=== PATIENT | female | born 1975 | race Caucasian/White ===

== ENCOUNTER 2016-06-21 05:13 | Emergency (ER) | payer OTHER ==
--- NOTE | 2016-06-21 08:01 | DIAGNOSTIC IMAGING REPORT ---
PROCEDURE: XR CHEST 1 VIEW INDICATION: CHEST PAIN TECHNIQUE: Portable AP view 0720 hours. COMPARISON: None. FINDINGS: Allowing for overlying wires and electrodes, lungs are clear. Heart and mediastinum are normal. Thorax is normal. IMPRESSION: 1. Negative chest.
--- NOTE | 2016-06-21 09:01 | ED NURSING NOTES ---
Clinical Report - Nurses [facility] [place] [place] [address] 06/21/2016 5:15 Patient: AXEL GOMEZ TRIAGE Triage time 05:20 Jun 21 2016. Acuity: LEVEL 3. Chief Complaint: CHEST PAIN. Alert. NANDO COMA SCORE: Spencer Coma Scale: 15- eyes open spontaneously (4); best verbal response- oriented x 4 (5); best motor response- obeys commands (6). --05:32 Carlos Velazquez R.N. 05:21 06/21/16. BP: 174/99. HR: 117. RR: 18. O2 saturation: 98%. Temp: 99.6 F (oral). Pain level now: 10. --05:32 Carlos Velazquez R.N. Weight: 90.7 kg stated. Height/Length: 66 inches Per Patient. BMI: 32.3. --05:23 Carlos Velazquez R.N. Medication/allergy information source: the patient. --05:34 Carlos Velazquez R.N. Allergies Latex. --09:18 Renee Rose R.N. History Arrived by private vehicle. Historian: patient. Accompanied by spouse. Primary physician (Bernice). ( Chest pain for the last 2 weeks but worsened starting last night. "Before it felt like pressure, but now it feels like pain."). Onset. (about 6 hours ago). She has had difficulty breathing and nausea. Reports experiencing sweating episodes. 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 (Zantac 150 mg). PAST MEDICAL HX: Immunizations: up-to-date. Last normal menstrual period was 2 weeks ago. Denies current . SURGERY HX: No history of previous surgery. SOCIAL HX: Never smoker. No alcohol use or drug use. No infectious disease exposure. ABUSE ASSESSMENT: No report of abuse. FALL RISK ASSESSMENT: Fall risk assessment completed. No fall risk identified. NUTRITIONAL RISK ASSESSMENT: The nutritional risk assessment revealed no deficiencies. FUNCTIONAL ASSESSMENT: Functional assessment: no impairments noted. LEARNING NEEDS ASSESSMENT: The learning needs assessment revealed no barriers. SKIN INTEGRITY ASSESSMENT: Skin integrity risk assessment completed. No skin integrity risk identified. --05:32 Carlos Velazquez R.N. ADDITIONAL SURGERIES: no known surgeries. Interventions ID and allergy band on patient. To treatment room. --05:32 Carlos Velazquez R.N. PHYSICAL ASSESSMENT Ambulatory to room. GENERAL / NEURO / PSYCH: Alert. Oriented X 4. Appears in pain. HEENT: Mucous membranes are pink. RESPIRATORY: Respirations not labored. CVS: Cardiac rhythm: sinus tachycardia. Pulses within normal limits. Capillary refill less than 2 seconds. GI / : Abdomen soft. EXTREMITIES: No lower extremity edema. SKIN: Skin is warm and dry. Normal skin turgor. Skin is non-tender. --05:32 Carlos Velazquez R.N. NURSING PROGRESS NOTES travel accommodation inspector, pulse oximeter and NIBP monitor placed on patient; cardiac catheterization technician- Lead II and V1; monitor alarms on. Patient gowned. Reassurance given to the patient. Patient identifiers checked. Call light placed in reach. Side rails up x 1. Bed placed in lowest position. Brakes of bed on. Patient ready for evaluation- chart flagged and ED physician notified. --05:33 Carlos Velazquez R.N. EKG time: (0547 AM). EKG was ordered, performed by a tech and shown to the ED physician. --05:50 Marilee Can 05:41 06/21/2016 Site #1 started via IV in the left antecubital space with an 20g angiocath, with aseptic technique and good blood return; one attempt. Blood drawn: rainbow set. Labeled in the presence of the patient and sent to the lab. Saline lock flushed with 10 mL saline. --05:51 Carlos Velazquez R.N. 05:50 06/21/2016 Viscous Lidocaine 20 mL and Mylanta 30 mL * PO 50mL --06:05 Carlos Velazquez R.N. 06:00 06/21/16. BP: 137/84. HR: 100. RR: 16. O2 saturation: 95%. Pain level now: 10. --06:12 Carlos Velazquez R.N. 06:30 06/21/16. BP: 149/94. HR: 100. RR: 16. O2 saturation: 96% on room air. Temp: 99 F. Pain level now: 7/10. Additional comments: pressure. --06:43 Carlos Velazquez R.N. 06:40 06/21/2016 Zofran (Ondansetron HCl) IVP 4 mg given over 2 minute(s) via site #1. Allergies verified and confirmed 5 rights. IV patency established. IV site checked: no pain, redness, or swelling. IV flushed thoroughly pre- and post-medication administration. IVP given by RN. --06:45 Carlos Velazquez R.N. 07:06 06/21/16. Care transferred and report received (Carlos Parisi). --07:06 Renee Rose R.N. Cardiac rhythm: sinus tachycardia. --07:13 Renee Rose R.N. 07:13 06/21/16. BP: 151/90. HR: 100. RR: 12. O2 saturation: 95%. --07:13 Renee Rose R.N. 07:19 06/21/16. ( CXR in rm). --07:19 Carlos Velazquez R.N. 08:39 06/21/16. BP: 130/79. HR: 93. RR: 13. O2 saturation: 95% on room air. Pain level now 3/10. --08:39 Renee Rose R.N. Cardiac rhythm: normal sinus rhythm. --08:39 Renee Rose R.N. 09:05 06/21/2016 Aspirin PO Tablets 325 mg given. Allergies verified and confirmed 5 rights. --09:15 Renee Rose R.N. DISPOSITION / DISCHARGE 09:15 06/21/16. Departure time: 914. Cardiac rhythm: normal sinus rhythm. Condition at departure: improved and stable. No learning barriers present. Discharge instructions provided and reviewed with the patient. Reviewed medication(s) side effects, precautions, dosing and course information. Patient verbalized understanding. Written instructions provided in Croatian. The patient was discharged by the physician. She was discharged home and accompanied by spouse. She left the Emergency Department ambulatory and via private vehicle. Patient driving. --09:16 Renee Rose R.N. 09:15 06/21/16. BP: 125/79. HR: 95. RR: 13. O2 saturation: 96%. Temp: 98.0 F. Pain level now 07/20. --09:16 Renee Rose R.N. Locked/Released at 06/21/2016 9:19 by Renee Rose R.N.
--- NOTE | 2016-06-21 09:01 | ED ORDER SUMMARY ---
..... Patient: AXEL GOMEZ OrderSheet [facility] VisitID: [id number] [place] [address] 40y, F Registration Date/Time: 06/21/2016 ORDER SHEET Weight: 90.7 kg (stated) Allergies: Latex GENERAL ORDERS: Chest 2V Urgent (05:17 06/21/2016 Spring Rojas) (Ack 5:23 CHagerty ER Other Sports Official) (7:36 Hakan R.N.) Credentialing Assistant (Continuous) (CP) (05:17 06/21/2016 Spring Rojas) (Ack 5:23 Betsy [facility] Other Sports Official) (5:37 Linda R.N.) CBC w Diff Urgent (05:06/21/2016 Spring Rojas) (Ack 5:23 Betsy [facility] Other Sports Official) (5:51 Linda R.N.) BMP Urgent (05:17 06/21/2016 Spring Rojas) (Ack 5:23 Betsy [facility] Other Sports Official) (5:51 Linda R.N.) Urine Urgent (05:17 06/21/2016 Spring Rojas) (Ack 5:23 Betsy ER Other Sports Official) (5:51 Linda R.N.) (Cancelled: Other6:51 Linda R.N.) Troponin-I Urgent (05:17 06/21/2016 Spring Rojas) (Ack 5:23 Betsy ER Other Sports Official) (5:51 Linda R.N.) Pulse oximeter (05:17 06/21/2016 Spring Rojas) (Ack 5:23 Richarderty ER Other Sports Official) (5:37 Linda R.N.) UA-Culture if indicated Urgent (05:38 06/21/2016 Linda RYonNYon verbal order read back to Spring Rojas) (Ack 5:45 CHagervin ER Other Sports Official) (Cancelled: Unable to Collect9:18 Hakan R.N.) Serum Qualitative Urgent (06:52 06/21/2016 Linda RYonNYon verbal order read back to Spring Rojas) (7:04 CHagerty ER Other Sports Official) Troponin-I (draw 2 hours after first one was drawn) Urgent (06:53 06/21/2016 Spring Rojas) (Ack 7:04 Betsy ER Other Sports Official) (8:16 OHernandez) Chest 1V Urgent (07:10 06/21/2016 Betsy ER Other Sports Official verbal order read back to Spring Rojas) (Ack 7:11 Betsy ER Other Sports Official) (7:36 Hakan R.N.) MEDICATION ORDERS: GI Cocktail WHITE PO 30 mL (NOW) (05:52 06/21/2016 Spring Rojas) (6:05 Linda R.N.) Aspirin PO 325 mg (Do not crush or chew, NOW) (08:56 06/21/2016 Spring Rojas) (9:15 Hakan R.N.) IV FLUIDS: IV Saline Lock (05:17 06/21/2016 Spring Rojas) (5:51 Linda R.N.) Zofran IV 4 mg (NOW) (06:44 06/21/2016 Linda R.NYon verbal order read back to Spring Rojas) (6:45 Linda R.N.) ORDER SHEET NOTES: [Electronically signed by Philipp Cabello Dr. (09:11 06/21/2016)] [Electronically signed by Renee Rose R.N. (09:19 06/21/2016)] [Electronically locked/signed by Renee Rose R.N. (09:19 06/21/2016)]
--- NOTE | 2016-06-21 09:01 | ED CLINICAL REPORT ---
Clinical Report - Physicians/Mid Levels [facility] [address] [place] [address] 06/21/2016 5:15 Patient: AXEL GOMEZ Time Seen: 0515. Arrived- By private vehicle. Historian- patient. HISTORY OF PRESENT ILLNESS Chief Complaint: CHEST PAIN. No radiation. This started The past few weeks and is still present and worsening. It was abrupt in onset and has been waxing/waning but is not gone now. Onset during rest. At its maximum, severity described as severe. When seen in the E.D., severity described as severe. Modifying factors- (nonexertional. Patient does not recall what makes it better or what makes it worse). No nausea, vomiting, difficulty breathing or diaphoresis. (abrupt worsening approximately 3 hours ago). No additional chest pain. Similar symptoms previously: None. Recent medical care: The patient was seen recently in a clinic (patient reports getting anxiety medication from clinic which has not helped). REVIEW OF SYSTEMS The patient has had fever and chills. All systems otherwise negative, except as recorded above. PAST HISTORY See nurses notes. SOCIAL HISTORY Never smoker. No alcohol use or drug use. No recent travel. Is a local resident. FAMILY HISTORY Negative. No history of aortic aneurysm or dissection. no history of earlymyocardial infarction. ADDITIONAL NOTES The nursing notes have been reviewed. PHYSICAL EXAM Vital Signs: 06/21/2016 05:21 BP: 174/99. HR: 117. RR: 18. O2 saturation: 98%. Temp: 99.6 F. Pain level now: 5/10. Blood pressure normal. Oxygen saturation normal. Appearance: Alert. Oriented X3. No acute distress. Eyes: Pupils equal, round and reactive to light. Eyes normal inspection. ENT: Ears normal. Nose normal. Pharynx normal. Neck: Normal inspection. CVS: Heart rate / rhythm abnormal. Tachycardia. Heart sounds normal. Pulses normal. Rhythm normal. Respiratory: No respiratory distress. Breath sounds normal. No rales, rhonchi or wheezes. (Left upper anterior reproducible chest pain. . No signs of trauma. No overlying skin changes. No rashes.). Abdomen: Soft and nontender. Bowel sounds normal. No organomegaly. No mass. Femoral pulses equal. Back: Normal external inspection. Skin: Skin warm and dry. Normal skin color. No rash. Normal skin turgor. Extremities: Extremities exhibit normal ROM. No lower extremity edema. Neuro: Oriented X 3. No motor deficit. No sensory deficit. LABS, X-RAYS, AND EKG EKG: No acute ischemia. Regular narrow-complex tachycardia (120). Sinus tachycardia. Normal P waves. Normal NATALIE. Normal QRS complex. Normal axis. Normal ST and T waves, QT and QTc. The study has been interpreted contemporaneously by me. The study has been independently viewed by me. The EKG appears to be a good tracing. Chest X-ray: No acute disease. Normal lung markings present. No infiltrate. Views: PA. The X-rays were independently viewed by me and interpreted contemporaneously by me. Laboratory Tests: Serum Qualitative: ([place]: 06/21/2016 06:52) ( [facility] [place] 06:55) Final results Test Result Flag Units (Reference) , SERUM NEGATIVE CBC w Diff: ([place]: 06/21/2016 05:40) ( [facility] [place] 05:56[place] Final results Test Result Flag Units (Reference) WHITE BLOOD COUNT 10.3 K/uL (4.5-11.5) RED BLOOD COUNT 5.51 H M/uL (4.00-5.20) HEMOGLOBIN 15.6 gm/dL (12.0-16.0) HEMATOCRIT 48.1 H % (36.0-46.0) MEAN CELL VOLUME 87 fL (80-100) MEAN CORPUSCULAR HGB 28 pg (26-34) MEAN CORPUSCULAR HGB CONC 33 g/dL (31-37) RED CELL DISTRIBUTION WIDTH 13.1 % (11.6-14.8) PLATELET COUNT 368 K/uL (150-400) NEUTROPHIL % 79.1 H % (50-75) LYMPH % 16.1 L % (25-40) MONO % 2.5 L % (3-14) EOSINOPHIL % 1.9 % (0-4) BASOPHIL % 0.4 % (0-2) Troponin-I: ([place]RAEL: 06/21/2016 06:53) ( [facility] 06/21/2016 08:37) Final results Test Result Flag Units (Reference) TROPONIN I <0.05 ng/mL (0.00-1.5) TROPONIN REFERENCE RANGE:<0.1 NEGATIVE0.1-1.5 INDETERMINANT>1.5 POSITIVE BMP: ([place]: 06/21/2016 05:40) ( MsgRcvd 06/21/2016 06:14) Final results Test Result Flag Units (Reference) GLUCOSE 173 H mg/dL (70-110) BUN 13 mg/dL (7-18) CREATININE 0.8 mg/dL (0.6-1.3) Estimated GFR >60 mL/min Estimated GFR- >60 mL/min Note: Persistent reduction over 3 months in eGFR<60 mL/min/1.73 m2 defines CKD. Patients with eGFR values>=60 mL/min/1.73 m2 may also have CKD if evidence ofpersistent proteinuria. Additional information may be foundat www.kidney.org. SODIUM 140 mmol/L (136-145) POTASSIUM 3.5 mmol/L (3.5-5.1) CHLORIDE 103 mmol/L (98-107) CARBON DIOXIDE 28 mmol/L (21-32) CALCIUM 8.8 mg/dL (8.5-10.1) TROPONIN I <0.05 L ng/mL (0.00-1.5) TROPONIN REFERENCE RANGE:<0.1 NEGATIVE0.1-1.5 INDETERMINANT>1.5 POSITIVE . PROGRESS AND PROCEDURES Course of Care: the patient is a pleasant 40-year-old female presenting for chest pain. The patient has somewhat atypical symptoms on examination. Patient also has reproducible chest pain on the left side. Patient was prescribed try to fight with pulmonary embolism with the well's criteria. Patient is at low risk for pulmonary embolism. Do not workup is warranted at this time given the patient's low risk. Patient is agreeable to treatment plan for acute myocardial infarction evaluation. Chest x-ray and EKG as well as laboratory studies have been ordered. Because of the patient's time course, feel that troponin 2 will be needed. Do not fill patient has dissecting aortic aneurysm based on examination and history. First troponin was noted to be negative. Patient with improvement with her symptoms after the GI cocktail was provided. Patient is still currently awaiting the second troponin results. Chest x-ray does not show any acute abnormalities. Breast the patient's laboratory studies are also unremarkable. Workup shows patient to have a negative troponin 2. patient is low risk patient foracute cardiac event. The patient is a good outpatient candidate.The patient needs to be admitted at this time. Did not feel further emergency department evaluationis required At this time. Patient is resting in bed and in no acute distress. The heart ratehadimproved spontaneously without further intervention. Patient is currently resting in bed and in no acute distress. I discussed with patient in regards to further management. Patient will need cardiology follow-up. Discussed the patient workup, diagnosis, home care, follow-up, and return precautions. All questions answered. The patient expressed understanding of these instructions and is agreeable to them. Disposition: Discharged. Condition: good. CLINICAL IMPRESSION 06/21/2016 08:39 BP: 130/79. HR: 93. RR: 13. O2 saturation: 95%. Blood pressure normal. Oxygen saturation normal. Atypical chest pain .12 lead EKG performed. (acute left sided). INSTRUCTIONS Warnings: GENERAL WARNINGS: Return or contact your physician immediately if your condition worsens or changes unexpectedly, if not improving as expected, or if other problems arise. SPECIFICALLY, return if you develop chest, neck, jaw, shoulder, arm, or back pain, difficulty breathing, a fluttering sensation in your chest, lightheadedness, fainting, excessive fatigue, or sudden sweating. Prescription Medications: Pepcid 20 mg: take 1 orally every 12 hours as needed for indigestion, upset stomach or heartburn. Dispense thirty (30). No refills. Substitution is permissible. OTC Medications: Aspirin 81 mg (available over the counter): take 1 orally every 24 hours. Dispense thirty (30). No refills. Follow-up: Return to the emergency department as needed. Follow up with your doctor in three days. Reason for referral: recheck today's concerns. Summary of care provided to patient via paper. Screening today revealed the patient's blood pressure to be in the normal range. The patient should follow up with a primary care provider for blood pressure management. Understanding of the discharge instructions verbalized by patient. Follow-up with: Chava Velasquez MD, Cardiology, , [facility], [address], [facility], [address] Follow up in three days. Reason for referral: recheck today's concerns. Summary of care provided to patient via paper. (Electronically signed by Philipp Cabello Dr. 06/21/2016 9:11)
--- NOTE | 2016-06-21 09:01 | ED NURSING NOTES ---
Clinical Report - Nurses [facility] [place] [address] [address] [place] [address] 06/21/2016 5:15 Patient: AXEL GOMEZ TRIAGE Triage time 05:20 Jun 21 2016. Acuity: LEVEL 3. Chief Complaint: CHEST PAIN. Alert. NANDO COMA SCORE: [place] Coma Scale: 15- eyes open spontaneously (4); best verbal response- oriented x 4 (5); best motor response- obeys commands (6). --05:32 Carlos Velazquez R.N. 05:21 06/21/16. BP: 174/99. HR: 117. RR: 18. O2 saturation: 98%. Temp: 99.6 F (oral). Pain level now: 10. --05:32 Carlos Velazquez R.N. Weight: 90.7 kg stated. Height/Length: 66 inches Per Patient. BMI: 32.3. --05:23 Carlos Velazquez R.N. Medication/allergy information source: the patient. --05:34 Carlos Velazquez R.N. Allergies Latex. --09:18 Renee Rose R.N. History Arrived by private vehicle. Historian: patient. Accompanied by spouse. Primary physician (Bernice). ( Chest pain for the last 2 weeks but worsened starting last night. "Before it felt like pressure, but now it feels like pain."). Onset. (about 6 hours ago). She has had difficulty breathing and nausea. Reports experiencing sweating episodes. 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 (Zantac 150 mg). PAST MEDICAL HX: Immunizations: up-to-date. Last normal menstrual period was 2 weeks ago. Denies current . SURGERY HX: No history of previous surgery. SOCIAL HX: Never smoker. No alcohol use or drug use. No infectious disease exposure. ABUSE ASSESSMENT: No report of abuse. FALL RISK ASSESSMENT: Fall risk assessment completed. No fall risk identified. NUTRITIONAL RISK ASSESSMENT: The nutritional risk assessment revealed no deficiencies. FUNCTIONAL ASSESSMENT: Functional assessment: no impairments noted. LEARNING NEEDS ASSESSMENT: The learning needs assessment revealed no barriers. SKIN INTEGRITY ASSESSMENT: Skin integrity risk assessment completed. No skin integrity risk identified. --05:32 Carlos Velazquez R.N. ADDITIONAL SURGERIES: no known surgeries. Interventions ID and allergy band on patient. To treatment room. --05:32 Carlos Velazquez R.N. PHYSICAL ASSESSMENT Ambulatory to room. GENERAL / NEURO / PSYCH: Alert. Oriented X 4. Appears in pain. HEENT: Mucous membranes are pink. RESPIRATORY: Respirations not labored. CVS: Cardiac rhythm: sinus tachycardia. Pulses within normal limits. Capillary refill less than 2 seconds. GI / : Abdomen soft. EXTREMITIES: No lower extremity edema. SKIN: Skin is warm and dry. Normal skin turgor. Skin is non-tender. --05:32 Carlos Velazquez R.N. NURSING PROGRESS NOTES hospice registered nurse, pulse oximeter and NIBP monitor placed on patient; computer meteorologist- Lead II and V1; monitor alarms on. Patient gowned. Reassurance given to the patient. Patient identifiers checked. Call light placed in reach. Side rails up x 1. Bed placed in lowest position. Brakes of bed on. Patient ready for evaluation- chart flagged and ED physician notified. --05:33 Carlos Velazquez R.N. EKG time: (0547 AM). EKG was ordered, performed by a tech and shown to the ED physician. --05:50 Marilee Can 05:41 06/21/2016 Site #1 started via IV in the left antecubital space with an 20g angiocath, with aseptic technique and good blood return; one attempt. Blood drawn: rainbow set. Labeled in the presence of the patient and sent to the lab. Saline lock flushed with 10 mL saline. --05:51 Carlos Velazquez R.N. 05:50 06/21/2016 Viscous Lidocaine 20 mL and Mylanta 30 mL * PO 50mL --06:05 Carlos Velazquez R.N. 06:00 06/21/16. BP: 137/84. HR: 100. RR: 16. O2 saturation: 95%. Pain level now: 10. --06:12 Carlos Velazquez R.N. 06:30 06/21/16. BP: 149/94. HR: 100. RR: 16. O2 saturation: 96% on room air. Temp: 99 F. Pain level now: 7/10. Additional comments: pressure. --06:43 Carlos Velazquez R.N. 06:40 06/21/2016 Zofran (Ondansetron HCl) IVP 4 mg given over 2 minute(s) via site #1. Allergies verified and confirmed 5 rights. IV patency established. IV site checked: no pain, redness, or swelling. IV flushed thoroughly pre- and post-medication administration. IVP given by RN. --06:45 Carlos Velazquez R.N. 07:06 06/21/16. Care transferred and report received (Carlos Parisi). --07:06 Renee Rose R.N. Cardiac rhythm: sinus tachycardia. --07:13 Renee Rose R.N. 07:13 06/21/16. BP: 151/90. HR: 100. RR: 12. O2 saturation: 95%. --07:13 Renee Rose R.N. 07:19 06/21/16. ( CXR in rm). --07:19 Carlos Velazquez R.N. 08:39 06/21/16. BP: 130/79. HR: 93. RR: 13. O2 saturation: 95% on room air. Pain level now 3/10. --08:39 Renee Rose R.N. Cardiac rhythm: normal sinus rhythm. --08:39 Renee Rose R.N. 09:05 06/21/2016 Aspirin PO Tablets 325 mg given. Allergies verified and confirmed 5 rights. --09:15 Renee Rose R.N. DISPOSITION / DISCHARGE 09:15 06/21/16. Departure time: 914. Cardiac rhythm: normal sinus rhythm. Condition at departure: improved and stable. No learning barriers present. Discharge instructions provided and reviewed with the patient. Reviewed medication(s) side effects, precautions, dosing and course information. Patient verbalized understanding. Written instructions provided in Finnish. The patient was discharged by the physician. She was discharged home and accompanied by spouse. She left the Emergency Department ambulatory and via private vehicle. Patient driving. --09:16 Renee Rose R.N. 09:15 06/21/16. BP: 125/79. HR: 95. RR: 13. O2 saturation: 96%. Temp: 98.0 F. Pain level now 07/20. --09:16 Renee Rose R.N. Locked/Released at 06/21/2016 9:19 by Renee Rose R.N.
--- NOTE | 2016-06-21 09:01 | ED ORDER SUMMARY ---
..... Patient: AXEL GOMEZ OrderSheet [facility] VisitID: [id number] [place] [address] 40y, F Registration Date/Time: 06/21/2016 ORDER SHEET Weight: 90.7 kg (stated) Allergies: Latex GENERAL ORDERS: Chest 2V Urgent (05:17 06/21/2016 Spring Rojas) (Ack 5:23 CHagerty ER Paintless Dent Repair Technician) (7:36 Hakan R.N.) Tank Stave Assembler (Continuous) (CP) (05:17 06/21/2016 Spring Rojas) (Ack 5:23 Betsy [facility] Paintless Dent Repair Technician) (5:37 Linda R.N.) CBC w Diff Urgent (05:06/21/2016 Spring Rojas) (Ack 5:23 Betsy [facility] Paintless Dent Repair Technician) (5:51 Linda R.N.) BMP Urgent (05:17 06/21/2016 Spring Rojas) (Ack 5:23 Betsy ER Paintless Dent Repair Technician) (5:51 Linda R.N.) Urine Urgent (05:17 06/21/2016 Spring Rojas) (Ack 5:23 Betsy ER Paintless Dent Repair Technician) (5:51 Linda R.N.) (Cancelled: Other6:51 Linda R.N.) Troponin-I Urgent (05:17 06/21/2016 Spring Rojas) (Ack 5:23 Betsy ER Paintless Dent Repair Technician) (5:51 Linda R.N.) Pulse oximeter (05:17 06/21/2016 Spring Rojas) (Ack 5:23 Richarderty ER Paintless Dent Repair Technician) (5:37 Linda R.N.) UA-Culture if indicated Urgent (05:38 06/21/2016 Linda RYonNYon verbal order read back to Spring Rojas) (Ack 5:45 CHagervin ER Paintless Dent Repair Technician) (Cancelled: Unable to Collect9:18 Hakan R.N.) Serum Qualitative Urgent (06:52 06/21/2016 Linda RYonNYon verbal order read back to Spring Rojas) (7:04 CHagerty ER Paintless Dent Repair Technician) Troponin-I (draw 2 hours after first one was drawn) Urgent (06:53 06/21/2016 Spring Rojas) (Ack 7:04 Betsy ER Paintless Dent Repair Technician) (8:16 OHernandez) Chest 1V Urgent (07:10 06/21/2016 Betsy ER Paintless Dent Repair Technician verbal order read back to Spring Rojas) (Ack 7:11 Betsy ER Paintless Dent Repair Technician) (7:36 Hakan R.N.) MEDICATION ORDERS: GI Cocktail WHITE PO 30 mL (NOW) (05:52 06/21/2016 Spring Rojas) (6:05 Linda R.N.) Aspirin PO 325 mg (Do not crush or chew, NOW) (08:56 06/21/2016 Spring Rojas) (9:15 Hakan R.N.) IV FLUIDS: IV Saline Lock (05:17 06/21/2016 Spring Rojas) (5:51 Linda R.N.) Zofran IV 4 mg (NOW) (06:44 06/21/2016 Linda R.NYon verbal order read back to Spring Rojas) (6:45 Linda R.N.) ORDER SHEET NOTES: [Electronically signed by Philipp Cabello Dr. (09:11 06/21/2016)] [Electronically signed by Renee Rose R.N. (09:19 06/21/2016)] [Electronically locked/signed by Renee Rose R.N. (09:19 06/21/2016)]
--- NOTE | 2016-06-21 09:19 | ED MED RECONCILIATION SUMMARY ---
Patient: AXEL GOMEZ Medication Reconciliation Report [facility] VisitID: [id number] [place] [address] 40y, F Registration Date/Time: 06/21/2016 Weight: 90.7 kg Height/Length: 66 in. BMI: 32.3 ALLERGIES: Latex The patient's Home Medications are listed below: Not obtained. The source(s) of the original Home Medication information: patient The following Medications were given to the patient in the Emergency Department: Viscous Lidocaine 20 mL and Mylanta 30 mL PO 50mL, administered: 06/21/2016 5:50:00 AM Zofran [IVP] IVP 4 mg, administered: 06/21/2016 6:40:00 AM Aspirin [PO] PO 325 mg, administered: 06/21/2016 9:05:00 AM The following Medications were prescribed to the patient: Pepcid 20 mg: take 1 orally every 12 hours as needed for indigestion, upset stomach or heartburn. Dispense thirty (30). No refills. Substitution is permissible. -- Philipp Cabello Dr. Aspirin 81 mg (available over the counter): take 1 orally every 24 hours. Dispense thirty (30). No refills. -- Philipp Cabello Dr.
--- NOTE | 2016-06-21 09:19 | ED MAR SUMMARY ---
..... Medication Administration Record [facility] [address] [place] [address] Patient: AXEL GOMEZ Visit ID: [id number] 40y, F Weight: 90.7 kg Height/Length: 66 in BMI: 32.3 ALLERGIES: Latex Given 05:50 06/21/2016 Carlos Velazquez RYonN. Medication Administered: Viscous Lidocaine 20 mL and Mylanta 30 mL *, Dose: 50mL * PO. Medication Ordered: GI Cocktail WHITE PO 30 mL (NOW). Given 06:40 06/21/2016 Carlos Velazquez RYonN. Medication Administered: ZOFRAN [IVP] (ONDANSETRON HCL), Dose: 4 mg IVP over 2 minute(s), Site: #1 left AC. Medication Ordered: Zofran IV 4 mg (NOW). Given 09:05 06/21/2016 Renee Rose RYonNYon Medication Administered: ASPIRIN [PO], Dose: 325 mg Tablets PO. Medication Ordered: Aspirin PO 325 mg (Do not crush or chew, NOW).
--- NOTE | 2016-06-21 09:19 | ED MAR SUMMARY ---
..... Medication Administration Record [facility] [address] [place] [address] Patient: AXEL GOMEZ Visit ID: [id number] 40y, F Weight: 90.7 kg Height/Length: 66 in BMI: 32.3 ALLERGIES: Latex Given 05:50 06/21/2016 Carlos Velazquez RYonN. Medication Administered: Viscous Lidocaine 20 mL and Mylanta 30 mL *, Dose: 50mL * PO. Medication Ordered: GI Cocktail WHITE PO 30 mL (NOW). Given 06:40 06/21/2016 Carlos Velazquez RYonN. Medication Administered: ZOFRAN [IVP] (ONDANSETRON HCL), Dose: 4 mg IVP over 2 minute(s), Site: #1 left AC. Medication Ordered: Zofran IV 4 mg (NOW). Given 09:05 06/21/2016 Renee Rose RYonNYon Medication Administered: ASPIRIN [PO], Dose: 325 mg Tablets PO. Medication Ordered: Aspirin PO 325 mg (Do not crush or chew, NOW).
--- NOTE | 2016-06-21 09:19 | ED DISCHARGE INSTRUCTIONS ---
Patient: AXEL GOMEZ General Instructions [facility] VisitID: [id number] [place] [address] 40y, F Registration Date/Time: 06/21/2016 06/21/2016 08:39 BP: 130/79. HR: 93. RR: 13. O2 saturation: 95%. Blood pressure normal. Oxygen saturation normal. Atypical chest pain .12 lead EKG performed. (acute left sided). INSTRUCTIONS Warnings: GENERAL WARNINGS: Return or contact your physician immediately if your condition worsens or changes unexpectedly, if not improving as expected, or if other problems arise. SPECIFICALLY, return if you develop chest, neck, jaw, shoulder, arm, or back pain, difficulty breathing, a fluttering sensation in your chest, lightheadedness, fainting, excessive fatigue, or sudden sweating. Prescription Medications: Pepcid 20 mg: take 1 orally every 12 hours as needed for indigestion, upset stomach or heartburn. Dispense thirty (30). No refills. Substitution is permissible. OTC Medications: Aspirin 81 mg (available over the counter): take 1 orally every 24 hours. Dispense thirty (30). No refills. Follow-up: Return to the emergency department as needed. Follow up with your doctor in three days. Reason for referral: recheck today's concerns. Summary of care provided to patient via paper. Screening today revealed the patient's blood pressure to be in the normal range. The patient should follow up with a primary care provider for blood pressure management. Understanding of the discharge instructions verbalized by patient. Follow-up with: Chava Velasquez MD, Cardiology, , [facility], [address], [facility], [id number] Follow up in three days. Reason for referral: recheck today's concerns. Summary of care provided to patient via paper. ADDITIONAL INFORMATION Chest Pain, Uncertain Cause Chest pain can happen for a number of reasons. Sometimes the cause can not be determined. If yourcondition does not seem serious, and your pain does not appear to be coming from your heart, your doctor may recommend watching it closely. Sometimes the signs of a serious problem take more time to appear. Therefore, watch for the warning signs listed below. Home care After your visit, follow these recommendations: Rest today and avoid strenuous activity. Take any prescribed medicine as directed. Follow-up care Follow up with your doctor or this facility as instructed or if you do not start to feel better within 24 hours. Call 911 Get immediate medical attention if any of the following occur: A change in the type of pain: if it feels different, becomes more severe, lasts longer, or begins to spread into your shoulder, arm, neck, jaw or back Shortness of breath or increased pain with breathing Weakness, dizziness, or fainting Rapid heart beat Get prompt medical attention Call your doctor right away if any of the following occur: Cough with dark colored sputum (phlegm) or blood Fever of 100.4F(38C) or higher, or as directed by your health care provider Swelling, pain or redness in one leg Famotidine Oral tablet What is this medicine? FAMOTIDINE (fa MÓNICA ti louie) is a type of antihistamine that blocks the release of stomach acid. It is used to treat stomach or intestinal ulcers. It can also relieve heartburn from acid reflux. How should I use this medicine? Take this medicine by mouth with a glass of water. Follow the directions on the prescription label. If you only take this medicine once a day, take it at bedtime. Take your doses at regular intervals. Do not take your medicine more often than directed. Talk to your risk prevention engineer regarding the use of this medicine in children. Special care may be needed. What side effects may I notice from receiving this medicine? Side effects that you should report to your doctor or health career development facilitator as soon as possible: agitation, nervousness confusion hallucinations skin rash, itching Side effects that usually do not require medical attention (report to your doctor or health career development facilitator if they continue or are bothersome): constipation diarrhea dizziness headache What may interact with this medicine? delavirdine itraconazole ketoconazole What if I miss a dose? If you miss a dose, take it as soon as you can. If it is almost time for your next dose, take only that dose. Do not take double or extra doses. Where should I keep my medicine? Keep out of the reach of children. Store at room temperature between 15 and 30 degrees C (59 and 86 degrees F). Do not freeze. Throw away any unused medicine after the expiration date. What should I tell my health care provider before I take this medicine? They need to know if you have any of these conditions: kidney or liver disease trouble swallowing an unusual or allergic reaction to famotidine, other medicines, foods, dyes, or preservatives or trying to get breast-feeding What should I watch for while using this medicine? Tell your doctor or health career development facilitator if your condition does not start to get better or if it gets worse. Finish the full course of tablets prescribed, even if you feel better. Do not take with aspirin, ibuprofen or other antiinflammatory medicines. These can make your condition worse. Do not smoke cigarettes or drink alcohol. These cause irritation in your stomach and can increase the time it will take for ulcers to heal. If you get black, tarry stools or vomit up what looks like coffee grounds, call your doctor or health career development facilitator at once. You may have a bleeding ulcer. Aspirin Oral tablet What is this medicine? ASPIRIN ( pir in) is a pain reliever. It is used to treat mild pain and fever. This medicine is also used as directed by a doctor to prevent and to treat heart attacks, to prevent strokes, and to treat arthritis or inflammation. How should I use this medicine? Take this medicine by mouth with a glass of water. Follow the directions on the package or prescription label. You can take this medicine with or without food. If it upsets your stomach, take it with food. Do not take your medicine more often than directed. Talk to your risk prevention engineer regarding the use of this medicine in children. While this drug may be prescribed for children as young as 12 years of age for selected conditions, precautions do apply. Children and teenagers should not use this medicine to treat chicken pox or flu symptoms unless directed by a doctor. Patients over 65 years old may have a stronger reaction and need a smaller dose. What side effects may I notice from receiving this medicine? Side effects that you should report to your doctor or health career development facilitator as soon as possible: allergic reactions like skin rash, itching or hives, swelling of the face, lips, or tongue breathing problems changes in hearing, ringing in the ears confusion general ill feeling or flu-like symptoms pain on swallowing redness, blistering, peeling or loosening of the skin, including inside the mouth or nose signs and symptoms of bleeding such as bloody or black, tarry stools; red or dark-brown urine; spitting up blood or brown material that looks like coffee grounds; red spots on the skin; unusual bruising or bleeding from the eye, gums, or nose trouble passing urine or change in the amount of urine unusually weak or tired yellowing of the eyes or skin Side effects that usually do not require medical attention (report to your doctor or health career development facilitator if they continue or are bothersome): diarrhea or constipation nausea, vomiting stomach gas, heartburn What may interact with this medicine? Do not take this medicine with any of the following medications: cidofovir ketorolac probenecid This medicine may also interact with the following medications: alcohol alendronate bismuth subsalicylate flavocoxid herbal supplements like feverfew, garlic, alma, ginkgo biloba, horse chestnut medicines for diabetes or glaucoma like acetazolamide, methazolamide medicines for gout medicines that treat or prevent blood clots like enoxaparin, heparin, ticlopidine, warfarin other aspirin and aspirin-like medicines NSAIDs, medicines for pain and inflammation, like ibuprofen or naproxen pemetrexed sulfinpyrazone varicella live vaccine What if I miss a dose? If you are taking this medicine on a regular schedule and miss a dose, take it as soon as you can. If it is almost time for your next dose, take only that dose. Do not take double or extra doses. Where should I keep my medicine? Keep out of the reach of children. Store at room temperature between 15 and 30 degrees C (59 and 86 degrees F). Protect from heat and moisture. Do not use this medicine if it has a strong vinegar smell. Throw away any unused medicine after the expiration date. What should I tell my health care provider before I take this medicine? They need to know if you have any of these conditions: anemia asthma bleeding problems child with chickenpox, the flu, or other viral infection diabetes gout if you frequently drink alcohol containing drinks kidney disease liver disease low level of vitamin K lupus smoke tobacco stomach ulcers or other problems an unusual or allergic reaction to aspirin, tartrazine dye, other medicines, dyes, or preservatives or trying to get breast-feeding What should I watch for while using this medicine? If you are treating yourself for pain, tell your doctor or health career development facilitator if the pain lasts more than 10 days, if it gets worse, or if there is a new or different kind of pain. Tell your doctor if you see redness or swelling. Also, check with your doctor if you have a fever that lasts for more than 3 days. Only take this medicine to prevent heart attacks or blood clotting if prescribed by your doctor or health career development facilitator. Do not take aspirin or aspirin-like medicines with this medicine. Too much aspirin can be dangerous. Always read the labels carefully. This medicine can irritate your stomach or cause bleeding problems. Do not smoke cigarettes or drink alcohol while taking this medicine. Do not lie down for 30 minutes after taking this medicine to prevent irritation to your throat. If you are scheduled for any medical or dental procedure, tell your healthcare provider that you are taking this medicine. You may need to stop taking this medicine before the procedure. You have been given the following additional information: Chest Pain, Uncertain Cause Famotidine Oral tablet Aspirin Oral tablet (Electronically signed by Philipp Cabello Dr. 06/21/2016 9:11)
--- NOTE | 2016-06-21 09:19 | ED DISCHARGE INSTRUCTIONS ---
Patient: AXEL GOMEZ General Instructions [facility] VisitID: [id number] [place] [address] 40y, F Registration Date/Time: 06/21/2016 06/21/2016 08:39 BP: 130/79. HR: 93. RR: 13. O2 saturation: 95%. Blood pressure normal. Oxygen saturation normal. Atypical chest pain .12 lead EKG performed. (acute left sided). INSTRUCTIONS Warnings: GENERAL WARNINGS: Return or contact your physician immediately if your condition worsens or changes unexpectedly, if not improving as expected, or if other problems arise. SPECIFICALLY, return if you develop chest, neck, jaw, shoulder, arm, or back pain, difficulty breathing, a fluttering sensation in your chest, lightheadedness, fainting, excessive fatigue, or sudden sweating. Prescription Medications: Pepcid 20 mg: take 1 orally every 12 hours as needed for indigestion, upset stomach or heartburn. Dispense thirty (30). No refills. Substitution is permissible. OTC Medications: Aspirin 81 mg (available over the counter): take 1 orally every 24 hours. Dispense thirty (30). No refills. Follow-up: Return to the emergency department as needed. Follow up with your doctor in three days. Reason for referral: recheck today's concerns. Summary of care provided to patient via paper. Screening today revealed the patient's blood pressure to be in the normal range. The patient should follow up with a primary care provider for blood pressure management. Understanding of the discharge instructions verbalized by patient. Follow-up with: Chava Velasquez MD, Cardiology, , [facility], [address], [facility], [id number] Follow up in three days. Reason for referral: recheck today's concerns. Summary of care provided to patient via paper. ADDITIONAL INFORMATION Chest Pain, Uncertain Cause Chest pain can happen for a number of reasons. Sometimes the cause can not be determined. If yourcondition does not seem serious, and your pain does not appear to be coming from your heart, your doctor may recommend watching it closely. Sometimes the signs of a serious problem take more time to appear. Therefore, watch for the warning signs listed below. Home care After your visit, follow these recommendations: Rest today and avoid strenuous activity. Take any prescribed medicine as directed. Follow-up care Follow up with your doctor or this facility as instructed or if you do not start to feel better within 24 hours. Call 911 Get immediate medical attention if any of the following occur: A change in the type of pain: if it feels different, becomes more severe, lasts longer, or begins to spread into your shoulder, arm, neck, jaw or back Shortness of breath or increased pain with breathing Weakness, dizziness, or fainting Rapid heart beat Get prompt medical attention Call your doctor right away if any of the following occur: Cough with dark colored sputum (phlegm) or blood Fever of 100.4F(38C) or higher, or as directed by your health care provider Swelling, pain or redness in one leg Famotidine Oral tablet What is this medicine? FAMOTIDINE (fa MÓNICA ti louie) is a type of antihistamine that blocks the release of stomach acid. It is used to treat stomach or intestinal ulcers. It can also relieve heartburn from acid reflux. How should I use this medicine? Take this medicine by mouth with a glass of water. Follow the directions on the prescription label. If you only take this medicine once a day, take it at bedtime. Take your doses at regular intervals. Do not take your medicine more often than directed. Talk to your kiln loader regarding the use of this medicine in children. Special care may be needed. What side effects may I notice from receiving this medicine? Side effects that you should report to your doctor or health health care technician as soon as possible: agitation, nervousness confusion hallucinations skin rash, itching Side effects that usually do not require medical attention (report to your doctor or health health care technician if they continue or are bothersome): constipation diarrhea dizziness headache What may interact with this medicine? delavirdine itraconazole ketoconazole What if I miss a dose? If you miss a dose, take it as soon as you can. If it is almost time for your next dose, take only that dose. Do not take double or extra doses. Where should I keep my medicine? Keep out of the reach of children. Store at room temperature between 15 and 30 degrees C (59 and 86 degrees F). Do not freeze. Throw away any unused medicine after the expiration date. What should I tell my health care provider before I take this medicine? They need to know if you have any of these conditions: kidney or liver disease trouble swallowing an unusual or allergic reaction to famotidine, other medicines, foods, dyes, or preservatives or trying to get breast-feeding What should I watch for while using this medicine? Tell your doctor or health health care technician if your condition does not start to get better or if it gets worse. Finish the full course of tablets prescribed, even if you feel better. Do not take with aspirin, ibuprofen or other antiinflammatory medicines. These can make your condition worse. Do not smoke cigarettes or drink alcohol. These cause irritation in your stomach and can increase the time it will take for ulcers to heal. If you get black, tarry stools or vomit up what looks like coffee grounds, call your doctor or health health care technician at once. You may have a bleeding ulcer. Aspirin Oral tablet What is this medicine? ASPIRIN ( pir in) is a pain reliever. It is used to treat mild pain and fever. This medicine is also used as directed by a doctor to prevent and to treat heart attacks, to prevent strokes, and to treat arthritis or inflammation. How should I use this medicine? Take this medicine by mouth with a glass of water. Follow the directions on the package or prescription label. You can take this medicine with or without food. If it upsets your stomach, take it with food. Do not take your medicine more often than directed. Talk to your kiln loader regarding the use of this medicine in children. While this drug may be prescribed for children as young as 12 years of age for selected conditions, precautions do apply. Children and teenagers should not use this medicine to treat chicken pox or flu symptoms unless directed by a doctor. Patients over 65 years old may have a stronger reaction and need a smaller dose. What side effects may I notice from receiving this medicine? Side effects that you should report to your doctor or health health care technician as soon as possible: allergic reactions like skin rash, itching or hives, swelling of the face, lips, or tongue breathing problems changes in hearing, ringing in the ears confusion general ill feeling or flu-like symptoms pain on swallowing redness, blistering, peeling or loosening of the skin, including inside the mouth or nose signs and symptoms of bleeding such as bloody or black, tarry stools; red or dark-brown urine; spitting up blood or brown material that looks like coffee grounds; red spots on the skin; unusual bruising or bleeding from the eye, gums, or nose trouble passing urine or change in the amount of urine unusually weak or tired yellowing of the eyes or skin Side effects that usually do not require medical attention (report to your doctor or health health care technician if they continue or are bothersome): diarrhea or constipation nausea, vomiting stomach gas, heartburn What may interact with this medicine? Do not take this medicine with any of the following medications: cidofovir ketorolac probenecid This medicine may also interact with the following medications: alcohol alendronate bismuth subsalicylate flavocoxid herbal supplements like feverfew, garlic, alma, ginkgo biloba, horse chestnut medicines for diabetes or glaucoma like acetazolamide, methazolamide medicines for gout medicines that treat or prevent blood clots like enoxaparin, heparin, ticlopidine, warfarin other aspirin and aspirin-like medicines NSAIDs, medicines for pain and inflammation, like ibuprofen or naproxen pemetrexed sulfinpyrazone varicella live vaccine What if I miss a dose? If you are taking this medicine on a regular schedule and miss a dose, take it as soon as you can. If it is almost time for your next dose, take only that dose. Do not take double or extra doses. Where should I keep my medicine? Keep out of the reach of children. Store at room temperature between 15 and 30 degrees C (59 and 86 degrees F). Protect from heat and moisture. Do not use this medicine if it has a strong vinegar smell. Throw away any unused medicine after the expiration date. What should I tell my health care provider before I take this medicine? They need to know if you have any of these conditions: anemia asthma bleeding problems child with chickenpox, the flu, or other viral infection diabetes gout if you frequently drink alcohol containing drinks kidney disease liver disease low level of vitamin K lupus smoke tobacco stomach ulcers or other problems an unusual or allergic reaction to aspirin, tartrazine dye, other medicines, dyes, or preservatives or trying to get breast-feeding What should I watch for while using this medicine? If you are treating yourself for pain, tell your doctor or health health care technician if the pain lasts more than 10 days, if it gets worse, or if there is a new or different kind of pain. Tell your doctor if you see redness or swelling. Also, check with your doctor if you have a fever that lasts for more than 3 days. Only take this medicine to prevent heart attacks or blood clotting if prescribed by your doctor or health health care technician. Do not take aspirin or aspirin-like medicines with this medicine. Too much aspirin can be dangerous. Always read the labels carefully. This medicine can irritate your stomach or cause bleeding problems. Do not smoke cigarettes or drink alcohol while taking this medicine. Do not lie down for 30 minutes after taking this medicine to prevent irritation to your throat. If you are scheduled for any medical or dental procedure, tell your healthcare provider that you are taking this medicine. You may need to stop taking this medicine before the procedure. You have been given the following additional information: Chest Pain, Uncertain Cause Famotidine Oral tablet Aspirin Oral tablet (Electronically signed by Philipp Cabello Dr. 06/21/2016 9:11)
--- NOTE | 2016-06-21 09:19 | ED MED RECONCILIATION SUMMARY ---
Patient: AXEL GOMEZ Medication Reconciliation Report [facility] VisitID: [id number] [place] [address] 40y, F Registration Date/Time: 06/21/2016 Weight: 90.7 kg Height/Length: 66 in. BMI: 32.3 ALLERGIES: Latex The patient's Home Medications are listed below: Not obtained. The source(s) of the original Home Medication information: patient The following Medications were given to the patient in the Emergency Department: Viscous Lidocaine 20 mL and Mylanta 30 mL PO 50mL, administered: 06/21/2016 5:50:00 AM Zofran [IVP] IVP 4 mg, administered: 06/21/2016 6:40:00 AM Aspirin [PO] PO 325 mg, administered: 06/21/2016 9:05:00 AM The following Medications were prescribed to the patient: Pepcid 20 mg: take 1 orally every 12 hours as needed for indigestion, upset stomach or heartburn. Dispense thirty (30). No refills. Substitution is permissible. -- Philipp Cabello Dr. Aspirin 81 mg (available over the counter): take 1 orally every 24 hours. Dispense thirty (30). No refills. -- Philipp Cabello Dr.
== END 2016-06-21 09:15 | disposition home or self-care (01) ==
LOC: ED SRH 05:13
DX: R07.89 Other chest pain (principal)
CPT/HCPCS: 90047; 90616; 93070; 95059; 98428

== ENCOUNTER 2016-09-18 10:33 | Outpatient (CLI) | payer OTHER ==
--- NOTE | 2016-09-18 17:04 | DIAGNOSTIC IMAGING REPORT ---
PROCEDURE: US ECHOCARDIOGRAM INDICATION: Chest pain, preoperative evaluation TECHNIQUE: Technically difficult study due to body habitus with suboptimal apical views. COMPARISON: None FINDINGS: Left ventricle normal in size. Wall thickness normal. Wall motion normal. Normal left ventricular ejection fraction of 69%. Normal diastolic function. Right ventricle normal size and function. Left atrium normal size. Right atrium normal size. Aortic valve normal in structure and function Mitral valve normal in structure and function Tricuspid valve normal in structure and function Pulmonic valve normal in structure and function The ascending aorta and normal in size at 2.9 cm Pericardium appears normal without effusion. IMPRESSION: Normal transthoracic echocardiogram
== END 2016-09-18 23:00 ==
LOC: US SRH 10:33
DX: Z01.818 Encounter for other preprocedural examination (principal); R07.89 Other chest pain